=== PATIENT | female | born 1980 | race Caucasian/White ===

== ENCOUNTER → 2017-06-05 | Outpatient (CLI) | payer OTHER ==
--- NOTE | 2017-06-05 09:12 | CT ---
EXAMINATION TYPE: CT brain wo con DATE OF EXAM: 06/05/2017 COMPARISON: NONE INDICATION: Syncope, Transient Global Amnesia DLP: 1094 mGycm, Automated exposure control for dose reduction was used. CONTRAST: None CT of the brain is performed utilizing 3 mm thick sections through the posterior fossa and 3 mm thick sections through the remaining calvarium. Study is performed within 24 hours of arrival to the hosp [facility]. No abnormal hyperdensity is present to suggest an acute intracranial hemorrhage. No mass lesion is evident. No acute infarcts are evident. Ventricles and sulci are appropriate for the patient age. Paranasal sinuses and mastoid air cells within the [id number] are clear. IMPRESSIONS: 1. Normal CT Brain
== END | disposition home or self-care (01) ==
LOC: RADCTMAIN 08:40
PROVIDERS: ATTEND Internal Medicine
DX: G45.4 Transient global amnesia (principal); R55 Syncope and collapse
CPT/HCPCS: 70450

== ENCOUNTER → 2017-06-13 | Outpatient (CLI) | payer OTHER ==
--- NOTE | 2017-06-19 13:22 | HM ---
HOLTER MONITOR REPORT DATE OF THE STUDY: 06/13/2017. INDICATION OF THE STUDY: Palpitation. CLINICAL INFORMATION: The patient was monitored for 24 hours. The baseline rhythm appeared to be a sinus mechanism with a minimum heart rate of 51 beats per minute, max heart rate 144 beats per minute and average heart rate of 89 beats per minute. Ventricular ectopic events were reported in less than 1% of the total and presented only as isolated PVCs. Supraventricular ectopic events were reported in less than 1% as well and presented only as PACs. No evidence of tachy or bradyarrhythmia noted. No evidence of advanced AV block. No evidence of sinus pause or sinus arrest. CONCLUSION: 1. Sinus rhythm as a baseline mechanism. 2. Rare ventricular ectopic events. 3. Rare supraventricular ectopic events. 4. There is no evidence of any advanced AV block. 5. There is no evidence of tachy or bradyarrhythmia. 6. There is no evidence of sinus pause or sinus arrest. MMODL / IJN: [id number] /
== END | disposition home or self-care (01) ==
LOC: RADECHMAIN 12:10
PROVIDERS: ATTEND Internal Medicine
DX: R55 Syncope and collapse (principal)
CPT/HCPCS: 93225; 93226

== ENCOUNTER 2017-09-18 15:06 | Emergency (ER) | payer OTHER ==
[2017-09-18 15:30] VITALS: BP 129/79; PULSE 94; RESP 20; TEMP 98.9
[2017-09-18] MEDS ORDERED: PROPARACAINE 0.5% OPHTH DROPS 15 ML BTL RIGHT EYE STA (16:14)
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
== END 2017-09-18 17:12 | disposition home or self-care (01) ==
LOC: EC 15:06
DX: S00.11XA Contusion of right eyelid and periocular area, initial encounter (principal); F17.200 Nicotine dependence, unspecified, uncomplicated; Y04.0XXA Assault by unarmed brawl or fight, initial encounter; Y92.009 Unspecified place in unspecified non-institutional (private) residence as the place of occurrence of the external cause
CPT/HCPCS: 70140; 99284